=== PATIENT | female | born 1960 | race Caucasian/White ===

== ENCOUNTER 2017-08-04 00:08 | Emergency (ER) | payer SELFPAY ==
[~2017-08-04] VITALS: Ht 162.6 cm; Wt 65.0 kg
[2017-08-04] VITALS (7 sets, daily range): BP systolic 128–210; BP diastolic 70–99; PULSE 79–109; RESP 16–18; TEMP 97.6–98; O2SAT 96–100
[2017-08-04] MEDS ORDERED: GABA600T PO (00:50)
[2017-08-04] MEDS ORDERED: DULO20 PO (00:50)
[2017-08-04] MEDS ORDERED: WARF-21 PO (00:50)
[2017-08-04] MEDS ORDERED: SERO50TA PO (00:50)
[2017-08-04] MEDS ORDERED: HYDR-3366 PO (00:50)
[2017-08-04] MEDS ORDERED: HALOPERIDOL LACTATE 5 MG/ML AMP ONE (01:11)
[2017-08-04] MEDS ORDERED: HALOPERIDOL LACTATE 5 MG/ML AMP IM ONE (01:15)
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
[2017-08-04 01:58] LABS: WHITE BLOOD COUNT 9.8 TH/MM3 (4.0-11.0)
[2017-08-04 01:59] LABS: AUTOMATED NEUTROPHIL # 5.9 TH/MM3 (1.8-7.7); BASOPHIL # 0.1 TH/MM3 (0-0.2); BASOPHIL % 0.5 % (0.0-2.0); EOSINOPHIL # 0.2 TH/MM3 (0-0.4); EOSINOPHIL % 2.2 % (0.0-4.0); HEMATOCRIT 41.1 % (35.0-46.0); HEMO FLAGS DIFF FINAL; LYMPHOCYTE # 2.9 TH/MM3 (1.0-4.8); MEAN CELL VOLUME 97.1 FL (80.0-100.0); MEAN CORPUSCULAR HEMOGLOBIN 33.3 PG (27.0-34.0); MEAN CORPUSCULAR HGB CONC 34.3 % (32.0-36.0); MONO % 7.1 % (0.0-8.0); NEUT % 60.2 % (16.0-70.0); PLATELET COUNT 202 TH/MM3 (150-450); RED BLOOD COUNT 4.24 MIL/MM3 (4.00-5.30); RED CELL DISTRIBUTION WIDTH 14.3 % (11.6-17.2)
[2017-08-04 02:23] LABS: ALKALINE PHOSPHATASE 130 U/L (45-117); ALT (GPT) 24 U/L (10-53); ANION GAP 8 MEQ/L (5-15); AST (GOT) 22 U/L (15-37); BICARBONATE 20.8 MEQ/L (21.0-32.0); BLOOD UREA NITROGEN 13 MG/DL (7-18); CHLORIDE 109 MEQ/L (98-107); GLOMERULAR FILTRATION RATE 74 ML/MIN (>89); POTASSIUM 4.1 MEQ/L (3.5-5.1); SODIUM (NA) 138 MEQ/L (136-145); TOTAL BILIRUBIN ADULT 0.5 MG/DL (0.2-1.0)
[2017-08-04] MEDS ORDERED: WARFARIN SOD 7.5 MG TAB PO ONE (19:00)
[2017-08-05 06:23] VITALS: BP 137/71; PULSE 80; RESP 16; TEMP 98.7; O2SAT 98
[2017-08-05 11:32] VITALS: BP 131/60; PULSE 86; RESP 18
[2017-08-05 11:44] VITALS: BP 131/60; PULSE 86; RESP 18
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
--- NOTE | 2017-08-05 12:00 | PD ---
Physical Exam Date Seen by Provider: Aug 05, 2017 Time Seen by Provider: 12:00 Data Data Last Documented VS Vital Signs Date Time Temp Pulse Resp B/P (MAP) Pulse Ox O2 Delivery O2 Flow Rate FiO2 08/05/17 12:01 08/05/17 11:44 86 18 Room Air 08/05/17 06:23 98.7 98 Orders Orders Haloperidol Inj (Haldol Inj) (08/04/17 01:11) Haloperidol Inj (Haldol Inj) (08/04/17 01:15) Complete Blood Count With Diff (08/04/17 01:14) Comprehensive Metabolic Panel (08/04/17 01:14) Psych Screen (08/04/17 01:14) Drug Screen, Random Urine (08/04/17 01:14) Diet Regular Basic (08/04/17 Breakfast) Warfarin (Coumadin) (08/04/17 19:00) Diet Regular Basic (08/05/17 Breakfast) Diet Regular Basic (08/05/17 Lunch) Labs Laboratory Tests Test 08/04/17 01:35 08/04/17 03:24 White Blood Count 9.8 TH/MM3 Red Blood Count 4.24 MIL/MM3 Hemoglobin 14.1 GM/DL Hematocrit 41.1 % Mean Corpuscular Volume 97.1 FL Mean Corpuscular Hemoglobin 33.3 PG Mean Corpuscular Hemoglobin Concent 34.3 % Red Cell Distribution Width 14.3 % Platelet Count 202 TH/MM3 Mean Platelet Volume 7.6 FL Neutrophils (%) (Auto) 60.2 % Lymphocytes (%) (Auto) 30.0 % Monocytes (%) (Auto) 7.1 % Eosinophils (%) (Auto) 2.2 % Basophils (%) (Auto) 0.5 % Neutrophils # (Auto) 5.9 TH/MM3 Lymphocytes # (Auto) 2.9 TH/MM3 Monocytes # (Auto) 0.7 TH/MM3 Eosinophils # (Auto) 0.2 TH/MM3 Basophils # (Auto) 0.1 TH/MM3 CBC Comment DIFF FINAL Differential Comment Blood Urea Nitrogen 13 MG/DL Creatinine 0.80 MG/DL Random Glucose 110 MG/DL Total Protein 7.7 GM/DL Albumin 4.1 GM/DL Calcium Level 9.0 MG/DL Alkaline Phosphatase 130 U/L Aspartate Amino Transf (AST/SGOT) 22 U/L Alanine Aminotransferase (ALT/SGPT) 24 U/L Total Bilirubin 0.5 MG/DL Sodium Level 138 MEQ/L Potassium Level 4.1 MEQ/L Chloride Level 109 MEQ/L Carbon Dioxide Level 20.8 MEQ/L Anion Gap 8 MEQ/L Estimat Glomerular Filtration Rate 74 ML/MIN Urine Opiates Screen NEG Urine Barbiturates Screen NEG Urine Amphetamines Screen NEG Urine Benzodiazepines Screen NEG Urine Cocaine Screen NEG Urine Cannabinoids Screen NEG MDM Supervised Visit with MARQUEZ: No Narrative Course 66-year-old female who came to the ED for voluntary psychiatric evaluation. Determined to be psychotic, requiring Haldol and placed under Chan act by Dr. Figueroa. Please see his note for those details. Patient was evaluated by the psychiatrist, Dr. Borjas in the BA was lifted. Please see his note for those recommendations. On my exam the patient is alert and awake. No somatic complaints. GENERAL: Well-nourished, well-developed pleasant white female in no acute distress. SKIN: Focused skin assessment warm/dry. HEAD: Normocephalic. EYES: No scleral icterus. No injection or drainage. NECK: Supple, trachea midline. No JVD or lymphadenopathy. CARDIOVASCULAR: Regular rate and rhythm without murmurs, gallops, or rubs. RESPIRATORY: Breath sounds clear and equal bilaterally. No accessory muscle use. GASTROINTESTINAL: Abdomen soft, non-tender, nondistended. MUSCULOSKELETAL: No cyanosis, or edema. BACK: Nontender without obvious deformity. No CVA tenderness. Patient states that she plans to move in with her daughter shortly after discharge. She is stable and discharged for outpatient evaluation. Diagnosis Primary Impression: Adjustment disorder with mixed disturbance of emotions and conduct Referrals: [facility] (Out patient) Additional Instruction: Return to the ED for any urgent or emergent medical condition. Disposition: 01 DISCHARGE HOME Condition: Stable Tyra Cleary Aug 05, 2017 12:00
== END 2017-08-05 15:38 | disposition home or self-care (01) ==
LOC: NEPC 00:08 → NEPJ 08-05 15:38
DX: F43.25 Adjustment disorder with mixed disturbance of emotions and conduct (principal); Z72.0 Tobacco use; Z79.899 Other long term (current) drug therapy
CPT/HCPCS: 80053; 80307; 85025; 96372; 99284; J1630

== ENCOUNTER 2017-08-09 14:55 | Emergency (ER) | payer SELFPAY ==
[~2017-08-09] VITALS: Ht 167.6 cm; Wt 65.0 kg
[~2017-08-09 14:55] MED LIST: DULO20 PO; GABA600T PO; HYDR-3366 PO; SERO50TA PO; WARF-21 PO
[2017-08-09 15:00] VITALS: BP 184/83; PULSE 93; RESP 20; TEMP 98.3; O2SAT 96
[2017-08-09] MEDS ORDERED: LORazepam 2 MG/ML VIAL IM ONE (15:30)
[2017-08-09] MEDS ORDERED: HALOPERIDOL LACTATE 5 MG/ML AMP IM ONE (15:30)
[2017-08-09] MEDS ORDERED: LORazepam 2 MG/ML VIAL ONE (15:31)
[2017-08-09] MEDS ORDERED: HALOPERIDOL LACTATE 5 MG/ML AMP ONE (15:31)
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
[2017-08-09] MEDS ORDERED: MIDAZOLAM HCL 2 MG/2 ML VIAL IM ONE (16:00)
[2017-08-09 17:01] LABS: ACETAMINOPHEN LESS THAN 2.0 MCG/ML (10.0-30.0)
[2017-08-09 17:08] LABS: ALCOHOL LESS THAN 3 MG/DL (0-5)
[2017-08-09 17:35] LABS: ANION GAP 11 MEQ/L (5-15); AST (GOT) 21 U/L (15-37); BICARBONATE 19.8 MEQ/L (21.0-32.0); BLOOD UREA NITROGEN 14 MG/DL (7-18); CHLORIDE 108 MEQ/L (98-107); GLOMERULAR FILTRATION RATE 81 ML/MIN (>89); POTASSIUM 3.7 MEQ/L (3.5-5.1); SODIUM (NA) 139 MEQ/L (136-145)
[2017-08-09 17:36] LABS: ALT (GPT) 24 U/L (10-53)
[2017-08-09 17:38] LABS: ALKALINE PHOSPHATASE 130 U/L (45-117); TOTAL BILIRUBIN ADULT 0.4 MG/DL (0.2-1.0)
[2017-08-09 18:40] LABS: BASOPHIL # 0.1 TH/MM3 (0-0.2); BASOPHIL % 0.5 % (0.0-2.0); EOSINOPHIL # 0.1 TH/MM3 (0-0.4); EOSINOPHIL % 1.5 % (0.0-4.0); HEMATOCRIT 41.6 % (35.0-46.0); HEMO FLAGS DIFF FINAL; LYMPHOCYTE # 2.4 TH/MM3 (1.0-4.8); MEAN CELL VOLUME 98.2 FL (80.0-100.0); MEAN CORPUSCULAR HEMOGLOBIN 33.3 PG (27.0-34.0); MEAN CORPUSCULAR HGB CONC 33.9 % (32.0-36.0); MONO % 7.2 % (0.0-8.0); NEUT % 64.8 % (16.0-70.0); PLATELET COUNT 210 TH/MM3 (150-450); RED BLOOD COUNT 4.24 MIL/MM3 (4.00-5.30); RED CELL DISTRIBUTION WIDTH 14.4 % (11.6-17.2); WHITE BLOOD COUNT 9.3 TH/MM3 (4.0-11.0)
[2017-08-09 18:49] LABS: INTERNATIONAL NORMALIZED RATIO 5.7 RATIO; PROTHROMBIN TIME - PATIENT 68.4 SEC (9.8-11.6)
[2017-08-10] VITALS (7 sets, daily range): BP systolic 123–148; BP diastolic 61–69; PULSE 75–100; RESP 17–18; TEMP 97.6–98.2; O2SAT 89–98
[2017-08-10 06:26] LABS: BACTERIA, URINE OCC /hpf; BLOOD, URINE LARGE (NEG); COMMENT (UR) CULT NOT INDICATED; CULTURE IF INDICATED CULT NOT INDICATED; GLUCOSE,URINE NEG (NEG); KETONE, URINE 10 mg/dL (NEG); MUCUS URINE FEW /lpf (OCC); NITRITE,URINE NEG (NEG); SQUAMOUS EPITHELIAL CELL URINE 1 /hpf (0-5); URINE COLOR YELLOW (YELLW/STRAW)
[2017-08-10] MEDS ORDERED: ACETAMINOPHEN 325 MG TAB PO ONE (22:15)
[2017-08-11 02:00] VITALS: BP 164/70; PULSE 83; RESP 16
[2017-08-11 08:39] VITALS: BP 148/70; PULSE 95; RESP 18; O2SAT 99
[2017-08-11] MEDS ORDERED: NICOTINE 21 MG/24 HR PATCH T-DERMAL ONE (10:45)
--- NOTE | 2017-08-11 11:28 | PD ---
Physical Exam Date Seen by Provider: Aug 11, 2017 Time Seen by Provider: 11:26 Narrative 56-year-old female originally brought in under the Chan acted and medically cleared, was evaluated by the psychiatrist who was lifting the Chan act at this time. Psychiatry feels the patient is psychiatrically stable for discharge. Patient is medically stable for discharge. Please see psychiatric note for follow-up plan. Data Data Last Documented VS Vital Signs Date Time Temp Pulse Resp B/P (MAP) Pulse Ox O2 Delivery O2 Flow Rate FiO2 08/11/17 08:39 95 18 148/70 (96) 99 08/10/17 18:18 97.6 08/10/17 08:29 Room Air 08/10/17 05:08 2.00 Orders Orders Complete Blood Count With Diff (08/09/17 15:16) Comprehensive Metabolic Panel (08/09/17 15:16) Urinalysis - C+S If Indicated (08/09/17 15:16) Psych Screen (08/09/17 15:16) Drug Screen, Random Urine (08/09/17 15:24) Alcohol (Ethanol) (08/09/17 15:24) Salicylates (Aspirin) (08/09/17 15:24) Tylenol (Acetaminophen) (08/09/17 15:24) Haloperidol Inj (Haldol Inj) (08/09/17 15:30) Lorazepam Inj (Ativan Inj) (08/09/17 15:30) Haloperidol Inj (Haldol Inj) (08/09/17 15:31) Lorazepam Inj (Ativan Inj) (08/09/17 15:31) Midazolam Inj (Versed Inj) (08/09/17 16:00) Prothrombin Time / Inr (Pt) (08/09/17 16:37) Diet Regular Basic (08/09/17 Dinner) Restraints Violent (08/09/17 18:07) Diet Regular Basic (08/10/17 Breakfast) Diet Regular Basic (08/10/17 Dinner) Acetaminophen (Tylenol) (08/10/17 22:15) Diet Regular Basic (08/11/17 Breakfast) Diet Regular Basic (08/11/17 Lunch) Nicotine 21 Mg Patch.24 Hr (Habitrol 21 (08/11/17 10:45) Labs Laboratory Tests Test 08/09/17 16:15 08/09/17 16:30 08/09/17 18:30 08/10/17 05:55 Blood Urea Nitrogen 14 MG/DL Creatinine 0.74 MG/DL Random Glucose 106 MG/DL Total Protein 7.2 GM/DL Albumin 4.2 GM/DL Calcium Level 9.4 MG/DL Alkaline Phosphatase 130 U/L Aspartate Amino Transf (AST/SGOT) 21 U/L Alanine Aminotransferase (ALT/SGPT) 24 U/L Total Bilirubin 0.4 MG/DL Sodium Level 139 MEQ/L Potassium Level 3.7 MEQ/L Chloride Level 108 MEQ/L Carbon Dioxide Level 19.8 MEQ/L Anion Gap 11 MEQ/L Estimat Glomerular Filtration Rate 81 ML/MIN Salicylates Level 8.7 MG/DL Acetaminophen Level LESS THAN 2.0 MCG/ML Ethyl Alcohol Level LESS THAN 3 MG/DL Urine Opiates Screen NEG Urine Barbiturates Screen NEG Urine Amphetamines Screen NEG Urine Benzodiazepines Screen NEG Urine Cocaine Screen NEG Urine Cannabinoids Screen NEG White Blood Count 9.3 TH/MM3 Red Blood Count 4.24 MIL/MM3 Hemoglobin 14.1 GM/DL Hematocrit 41.6 % Mean Corpuscular Volume 98.2 FL Mean Corpuscular Hemoglobin 33.3 PG Mean Corpuscular Hemoglobin Concent 33.9 % Red Cell Distribution Width 14.4 % Platelet Count 210 TH/MM3 Mean Platelet Volume 7.7 FL Neutrophils (%) (Auto) 64.8 % Lymphocytes (%) (Auto) 26.0 % Monocytes (%) (Auto) 7.2 % Eosinophils (%) (Auto) 1.5 % Basophils (%) (Auto) 0.5 % Neutrophils # (Auto) 6.0 TH/MM3 Lymphocytes # (Auto) 2.4 TH/MM3 Monocytes # (Auto) 0.7 TH/MM3 Eosinophils # (Auto) 0.1 TH/MM3 Basophils # (Auto) 0.1 TH/MM3 CBC Comment DIFF FINAL Differential Comment Prothrombin Time 68.4 SEC Prothromb Time International Ratio 5.7 RATIO Urine Color YELLOW Urine Turbidity HAZY Urine pH 6.0 Urine Specific [place] 1.014 Urine Protein TRACE mg/dL Urine Glucose (UA) NEG mg/dL Urine Ketones 10 mg/dL Urine Occult Blood LARGE Urine Nitrite NEG Urine Bilirubin NEG Urine Urobilinogen LESS THAN 2.0 MG/DL Urine Leukocyte Esterase NEG Urine RBC /hpf Urine WBC 2 /hpf Urine Squamous Epithelial Cells 1 /hpf Urine Bacteria OCC /hpf Urine Mucus FEW /lpf Microscopic Urinalysis Comment CULT NOT INDICATED MDM Medical Record Reviewed: Yes Supervised Visit with MARQUEZ: Yes Narrative Course 56-year-old female originally brought in under the Chan acted and medically cleared, was evaluated by the psychiatrist who was lifting the Chan act at this time. Psychiatry feels the patient is psychiatrically stable for discharge. Patient is medically stable for discharge. Please see psychiatric note for follow-up plan. Diagnosis Primary Impression: Medical clearance for psychiatric admission Patient Instructions: General Instructions Additional Instruction: Follow-up with primary care provider in one week for INR recheck Disposition: 01 DISCHARGE HOME Condition: Stable Philip Brown Aug 11, 2017 11:28
--- NOTE | 2017-08-11 11:33 | PD.PSY.CON ---
Provisional Diagnosis Admission Date [place]. Adjustment disorder with mixed disturbances of emotion and conduct F 43.25 History of Present Illness Service Psychiatry Consult Requested By EDMD Reason for Consult Chan act Primary Care Physician Unknown HPI Patient is a 56-year-old white female who comes in under Chan act of [facility]'s office dated 08/09/17 at 1251 hrs. the document reviewed. There is stating that Gretchen has been laying out in the middle of her street because she wanted to show people she was "knots" Gretchen stated multiple times she suffers from mental illness and needed to go to the hospital. Gretchen made multiple statements not making sense stated she wanted to blow herself up by letting a cigarette by an oxygen. Patient seen screen in the ED urine toxicology negative. At the present time patient sitting quietly in her room on J pod nurse Lizzette present throughout session. She is alert oriented thin slight slender white female mildly disheveled. Stated she has had difficult with caring for herself since her multiple lower abdominal injuries and circulatory injuries to her legs. She has trouble caring for 2 pet dogs. Continues to grieve the loss of her marriage. Patient does denies suicidality homicidality voices or visions. Of interest patient was seen here August 04 consultation in the ED by Dr. Ady Cook. Did lift the Chan act at that time allotted to be discharged to continue her psychotropic medications of Cymbalta Seroquel and gabapentin. Patient somewhat vague about her compliance with medication. Patient is from [place] she does have an adult daughter who lives driven down here to take her mother and return home to [place] with her to help care for her. I feel that his good plan also. At this time patient does not meet Chan criteria. She has a appropriate monitoring of the community and set up to go back to [place] to be close to family. We'll offer her Cymbalta 30 mg a gabapentin 600 mg here help tide her over. The be leaving immediately for [place] Review of Systems Constitutional: DENIES: Diaphoretic episodes, Fatigue, Fever, Weight gain, Weight loss, Chills, Dizziness, Change in appetite, Night Sweats Eyes: DENIES: Blurred vision, Diplopia, Eye inflammation, Eye pain, Vision loss , Photosensitivity, Double Vision Ears, nose, mouth, throat: DENIES: Tinnitus, Hearing loss, Vertigo, Nasal discharge, Oral lesions, Throat pain, Hoarseness, Ear Pain, Running Nose, Epistaxis, Sinus Pain, Toothache, Odynophagia Respiratory: DENIES: Apneas, Cough, Snoring, Wheezing, Hemoptysis, Sputum production, Shortness of breath Cardiovascular: DENIES: Chest pain, Palpitations, Syncope, Dyspnea on Exertion , PND, Lower Extremity Edema, Orthopnea, Claudication Gastrointestinal: DENIES: Abdominal pain, Black stools, Bloody stools, Constipation, Diarrhea, Nausea, Vomiting, Difficulty Swallowing, Anorexia Genitourinary: DENIES: Abnormal vaginal bleeding, Dysmenorrhea, Dyspareunia, Sexual dysfunction, Urinary frequency, Urinary incontinence, Urgency, Hematuria , Dysuria, Nocturia, Vaginal discharge Musculoskeletal: DENIES: Joint pain, Muscle aches, Stiffness, Joint Swelling, Back pain, Neck pain Integumentary: DENIES: Abnormal pigmentation, Pruritus, Rash, Nail changes, Breast masses, Breast skin changes, Nipple discharge Hematologic/lymphatic: DENIES: Bruising, Lymphadenopathy Immunologic/allergic: DENIES: Eczema, Urticaria Neurologic: DENIES: Abnormal gait, Headache, Localized weakness, Paresthesias, Seizures, Speech Problems, Tremor, Poor Balance Psychiatric: DENIES: Anxiety, Confusion, Mood changes, Depression, Hallucinations, Agitation, Suicidal Ideation, Homicidal Ideation, Delusions Past Family Social History Coded Allergies: Penicillins (Verified Allergy, Severe, Anaphylaxis, 08/11/17) Per pt on 08/11/2017. Past Medical History Patient medically cleared ED Reported Medications Duloxetine DR (Cymbalta DR) 20 Mg Capdr, 20 MG PO DAILY, #30 CAP 0 Refills 08/04/17 Quetiapine (Seroquel) 50 Mg Tab, 100 MG PO DAILY, #60 TAB 0 Refills 08/04/17 Warfarin (Warfarin) 7.5 Mg Tab, 7.5 MG PO DAILY for Blood Clot Prevention, #30 TAB 0 Refills 08/04/17 Gabapentin (Gabapentin) 600 Mg Tab, 600 MG PO TID, #90 TAB 0 Refills 08/04/17 Discontinued Reported Medications Hydrocodone-Acetaminophen ([place]) 10-325 Mg Tab, 1 TAB PO Q6H Y for PAIN, TAB 0 Refills 08/04/17 Family Psych History Denies mental health issues and family Social History Patient recently still depressed over this Patient's Strengths (min. 2) Patient verbal irritable access healthcare Physical Exam Patient seen screened medically cleared through ED Vital Signs Vital Signs Date Time Temp Pulse Resp B/P (MAP) Pulse Ox O2 Delivery O2 Flow Rate FiO2 08/11/17 08:39 95 18 148/70 (96) 99 08/10/17 18:18 97.6 08/10/17 08:29 Room Air 08/10/17 05:08 2.00 Mental Status Examination Appearance: Appropriate, Disheveled (slightly) Consciousness: Alert Orientation: Person, Place, Date/Time, Situation Speech: Unremarkable (to slight increase rate) Language: Adequate Fund of Knowledge: Adequate Attention and Concentration: Other (fair) Memory: Impaired Mood: Other (euthymic this somewhat restricted) Affect: Other (/increase range and intensity) Thought Process & Associations: Linear Thought Content: Appropriate, Bizarre thinking (mildly) Hallucination Type: None Delusion Type: None (though somewhat vigilant) Suicidal Ideation: No Suicidal Plan: No Suicidal Intention: No Homicidal Ideation: No Homicidal Plan: No Homicidal Intention: No Insight: Poor Judgment: Impulsive Assessment & Plan Problem List: (1) Adjustment disorder with mixed disturbance of emotions and conduct ICD Codes: F43.25 - Adjustment disorder with mixed disturbance of emotions and conduct Assessment & Plan Estimated LOS: days patient does not meet Chan criteria will lift Chan act allow patient to be discharged to her daughter will give her 1 dose of Cymbalta and gabapentin prior to discharge family planning on returning immediately to admission her family will address mental health issues in the community Request HC Surrog/Guard Advoc?: Sukumar Raygoza MD Aug 11, 2017 11:33
[2017-08-11] MEDS ORDERED: GABAPENTIN 300 MG CAP PO ONE (12:00)
[2017-08-11] MEDS ORDERED: DULoxetine HCl DR 30 MG CAP PO ONE (12:00)
== END 2017-08-11 12:31 | disposition home or self-care (01) ==
LOC: NEPD 14:55 → NEPJ 08-11 12:31
DX: Z00.8 Encounter for other general examination (principal); F32.9 Major depressive disorder, single episode, unspecified; Z78.1 Physical restraint status; Z86.2 Personal history of diseases of the blood and blood-forming organs and certain disorders involving the immune mechanism; Z79.01 Long term (current) use of anticoagulants; Z88.0 Allergy status to penicillin; Z72.0 Tobacco use; Z79.899 Other long term (current) drug therapy
CPT/HCPCS: 80053; 80307; 81001; 85025; 85610; 96372; 99285; J1630; J2060